=== PATIENT | female | born 1945 | race Caucasian/White ===

== ENCOUNTER 2016-05-02 06:46 | Day surgery (SDC) | payer OTHER ==
[2016-05-01 11:14] VITALS: BMI 27.1
--- NOTE | 2016-05-01 13:46 | PREOPHP ---
DATE OF ADMISSION: 05/02/2016 HISTORY OF PRESENT ILLNESS: This 70-year-old patient is admitted for elective cataract surgery of t he left eye. The patient has had decreased vision in both eyes over the past few years. The patien t also has a history of advanced chronic open angle glaucoma currently being controlled with Timolol , Brimonidine, Dorzolamide and latanoprost. The patient's systemic history is positive for hyperten wiley and hypercholesterolemia. CURRENT MEDICATIONS INCLUDE: 1. Amlodipine. 2. Benazepril. 3. Simvastatin. PHYSICAL EXAMINATION: The visual acuity with best correction is 20/200 in the right eye and 20/400 in the left eye. Slit lamp examination reveals advanced nuclear sclerosis and posterior subcapsular cataract changes greater in the left eye than in the right eye. Applanation tonometry is 15 mmHg i n both eyes. Examination of the retina reveals advanced optic disk changes secondary to the glaucom a. DIAGNOSIS: Cataract, left eye. PLAN: Cataract extraction with lens implant, left eye. The risks and alternatives to the surgery h ave been discussed with the patient and patient has opted to proceed with surgery, with the hope of obtaining greater visual acuity leading to a greater ability to perform activities of daily living. Dictated By: OMEGA HUNT/ALAINA Conf#: [id number] DID#: [id number]
[~2016-05-02] VITALS: Ht 154.9 cm; Wt 65.5 kg
[2016-05-02] VITALS (10 sets, daily range): BP systolic 121–172; BP diastolic 58–74; PULSE 80–90; RESP 15–31; Ht 154.9 cm; Wt 65.5 kg
[~2016-05-02 06:46] MED LIST: BENA40TA41 PO; FLUT16SP17 NASAL; POTA10TA18 PO; SIMV5TAB50 PO
[2016-05-02] MEDS ORDERED: CIPROFLOXACIN 0.3% 2.5 ML OPH OPER SCH (07:00)
[2016-05-02] MEDS ORDERED: DICLOFENAC 0.1% 2.5 ML OPH OPER SCH (07:00)
[2016-05-02] MEDS ORDERED: TROPICAMIDE 1% 2 ML OPH OPER SCH (07:00)
[2016-05-02] MEDS ORDERED: CYCLOPENTOLATE/PHENYLEPH 2 ML OPH OPER SCH (07:00)
[2016-05-02] MEDS ORDERED: AMLO-147 PO (07:38)
[2016-05-02] MEDS ORDERED: BECAQ NASAL (07:39)
[2016-05-02] MEDS ORDERED: ASPI-664 PO (07:39)
[2016-05-02] MEDS ORDERED: LATA2.5D2 BOTH EYES (07:40)
[2016-05-02] MEDS ORDERED: DORZ1DRO6 BOTH EYES (07:40)
[2016-05-02] MEDS ORDERED: COMBIG5 BOTH EYES (07:41)
[2016-05-02] MEDS ORDERED: PROPOFOL 20 ML ONE (09:09)
[2016-05-02] MEDS ORDERED: LIDOCAINE 100 MG SYRINGE ONE (09:09)
[2016-05-02] MEDS ORDERED: LIDOCAINE 4% (MPF) 5 ML INJ ONE (09:23)
[2016-05-02] MEDS ORDERED: DEXAMETHASONE 4 MG/ML 1 ML INJ ONE (09:24)
[2016-05-02] MEDS ORDERED: CARBACHOL 0.01% 1.5 ML OPH INJ ONE (09:24)
[2016-05-02] MEDS ORDERED: CEFAZOLIN 1 GM INJ ONE (09:24)
[2016-05-02] MEDS ORDERED: EPINEPHrine 1 MG INJ ONE (09:24)
[2016-05-02] MEDS ORDERED: GENTAMICIN 80 MG INJ ONE (09:24)
[2016-05-02] MEDS ORDERED: HYALURONATE/CHONDROITIN 1ML OPH INJ ONE (09:24)
[2016-05-02] MEDS ORDERED: hydrALAzine 20 MG INJ IV PRN (09:30)
[2016-05-02] MEDS ORDERED: ATROPINE 1 MG/10 ML SYRINGE IV PRN (09:30)
[2016-05-02] MEDS ORDERED: MIDAZOLAM 1 MG/ML 2 ML INJ IV PRN (09:30)
[2016-05-02] MEDS ORDERED: HYDROmorphONE (0.2 MG/ML) 10ML SYG IV PRN ×3 (09:30)
[2016-05-02] MEDS ORDERED: EPHEDrine SULFATE 50 MG/5 ML SYG IV PRN (09:30)
[2016-05-02] MEDS ORDERED: ONDANSETRON 4 MG INJ IV PRN (09:30)
[2016-05-02] MEDS ORDERED: LABETALOL HCL 20MG INJ IV PRN (09:30)
[2016-05-02] MEDS ORDERED: morphine (1 MG/ML) 10ML SYRINGE IV PRN ×3 (09:30)
[2016-05-02] MEDS ORDERED: DIPHENHYDRAMINE 50 MG INJ IV PRN (09:30)
[2016-05-02] MEDS ORDERED: MEPERIDINE 25 MG INJ IV PRN (09:30)
[2016-05-02] MEDS ORDERED: FENTAnyl 50 MCG/ML VIAL IV PRN ×2 (09:30)
[2016-05-02] MEDS ORDERED: OXYCODONE/ACETAMINOPHEN (5/325) TAB PO PRN ×2 (09:30)
[2016-05-02] MEDS ORDERED: CARBACHOL 0.01% 1.5 ML OPH INJ IO ONE (09:32)
[2016-05-02] MEDS ORDERED: HYALURONATE/CHONDROITIN 1ML OPH INJ IO ONE (09:32)
[2016-05-02] MEDS ORDERED: DEXAMETHASONE 4 MG/ML 1 ML INJ INJ ONE (09:32)
[2016-05-02] MEDS ORDERED: CEFAZOLIN 1 GM INJ INJ ONE (09:32)
--- NOTE | 2016-05-02 11:18 | OPR ---
DATE OF OPERATION: 05/02/2016 PREOPERATIVE DIAGNOSIS: Cataract, left eye. POSTOPERATIVE DIAGNOSIS: Cataract, left eye. SURGEON: Omega Oakes MD ANESTHESIA: Local standby. ANESTHESIOLOGIST: Dr. Kinsey OPERATION: Phacoemulsification with posterior chamber intraocular lens implant, left eye. PROCEDURE: The patient was brought to the operating room and placed on the table with an IV in plac e and the patient attached to an strategic advisor. Oxygen was given via face mask. After some intravenous sedation was administered, local anesthesia was given using Xylocaine 2% with epinephrine, mixed with Marcaine 0.5%. This was given in a lid block and retrobulbar injection. The patient was then prepped and draped in the usual sterile manner. A wire lid speculum was inserted between the lids of the left eye. A Superblade was used to enter th e anterior chamber at the corneoscleral limbus at the 10:30 o'clock position. A separate incision wa s made using a 3.0-mm keratome which entered the corneoscleral junction at the 12 o'clock position. Through this 3-mm opening, an irrigating cystitome was introduced into the anterior chamber. The liliane mber was filled with Viscoat and an anterior capsulotomy was performed. Balanced salt solution was t hen used for hydrodissection of the lens. A phacoemulsification handpiece was then brought into the field and introduced into the anterior chamber. The lens nucleus was emulsified using a deep groove and cracking the nucleus into quadrants. Following this, each quadrant was aspirated and emulsified at the pupillary margin. After this was completed, the irrigation/aspiration handpiece was brought to the field, introduced i nto the posterior chamber, and the lens cortical material was removed. When this was completed, miguel tional Viscoat was injected into the anterior and posterior chambers. The 3-mm opening had its internal lips enlarged, and then the posterior chamber intraocular lens jame suring 18.0 diopters ([employer] Model LI61AO)was then injected into the posterior chamber using the lens injector system. After the leading haptic was introduced into the capsular ba g and the lens optic was present in the center of the eye, the injector was removed and the trailing haptic was grasped with non-toothed forceps and introduced into the capsular fold superiorly. A Sin skey hook was then used to rotate the intraocular lens so that the lips were oriented in the horizon juana meridian. One 10-0 nylon suture was placed across the wound. Prior to tying, the irrigation/aspiration handpiece was reintroduced into the anterior chamber to re move the Viscoat. Miochol was instilled to constrict the pupil, and then the 10-0 nylon suture was t ied. The ends were cut short and then the knot was buried. Then, 0.5 mL of dexamethasone and 0.5 mL of Ancef were injected into the sub-Tenon space in the infe rior fornix. Ciloxan drops were then placed on the surface of the eye. The speculum was removed and a patch was applied. The patient then left the operating room in satisfactory condition. Dictated By: OMEGA HUNT/ALAINA Conf#: [id number] DID#: [id number]
== END 2016-05-02 11:35 | disposition home or self-care (01) ==
LOC: SDS 06:46
PROVIDERS: ATTEND Ophthalmology
DX: H25.12 Age-related nuclear cataract, left eye (principal); E78.5 Hyperlipidemia, unspecified; I10 Essential (primary) hypertension
CPT/HCPCS: 66984; J0171; J0690; J1100; J1580; J2001; V2632; Z7512; Z7610

== ENCOUNTER 2016-07-04 05:20 | Day surgery (SDC) | payer OTHER ==
[2016-07-03 10:26] VITALS: Ht 154.9 cm; Wt 66.9 kg
--- NOTE | 2016-07-03 13:19 | PREOPHP ---
DATE OF ADMISSION: 07/04/2016 HISTORY OF PRESENT ILLNESS: This 70-year-old patient is admitted for elective cataract surgery of t he right eye. The patient has had progressive deterioration of vision in both eyes over the past fe w years and 2 months ago underwent cataract surgery in the left eye with good visual result. The rosaura morales also has a history of chronic open angle glaucoma, being controlled with Timolol, brimonidine, and dorzolamide, and latanoprost. The patient's systemic history is positive for hypertension and hypercholesterolemia. CURRENT MEDICATIONS: Include: 1. Amlodipine. 2. Benazepril. 3. Simvastatin. ALLERGIES: THERE ARE NO KNOWN ALLERGIES. PHYSICAL EXAMINATION: The visual acuity with best correction is 20/200 in the right eye and 20/50 i n the left eye. Slit lamp examination reveals nuclear sclerotic and posterior subcapsular cataract in the right eye and posterior chamber intraocular lens in the left eye. Applanation tonometry is 1 5 mmHg. Examination of the retina reveals optic disk changes secondary to the chronic glaucoma. DIAGNOSIS: Cataract, right eye. PLAN: Cataract extraction with lens implant, right eye. The risks and alternatives to the surgery have been discussed with the patient, and the patient desires to proceed with surgery in hopes of ob taining improved visual acuity leading to a greater ability to perform activities of daily living. Dictated By: OMEGA HUNT/ALAINA Conf#: [id number] DID#: [id number]
[2016-07-04] VITALS (13 sets, daily range): BP systolic 83–169; BP diastolic 40–76; PULSE 54–76; RESP 14–20
[~2016-07-04] VITALS: Ht 154.9 cm; Wt 66.9 kg
[~2016-07-04 05:20] MED LIST changes: +AMLO-147 PO; +ASPI-664 PO; +BECAQ NASAL; +COMBIG5 BOTH EYES; +DORZ1DRO6 BOTH EYES; -FLUT16SP17 NASAL; +LATA2.5D2 BOTH EYES
[2016-07-04] MEDS ORDERED: TROPICAMIDE 1% 2 ML OPH OPER SCH (07:00)
[2016-07-04] MEDS ORDERED: CIPROFLOXACIN 0.3% 2.5 ML OPH OPER SCH (07:00)
[2016-07-04] MEDS ORDERED: DICLOFENAC 0.1% 2.5 ML OPH OPER SCH (07:00)
[2016-07-04] MEDS ORDERED: CYCLOPENTOLATE/PHENYLEPH 2 ML OPH OPER SCH (07:00)
[2016-07-04] MEDS ORDERED: CEFAZOLIN 1 GM INJ ONE (08:03)
[2016-07-04] MEDS ORDERED: LIDOCAINE 4% (MPF) 5 ML INJ ONE (08:03)
[2016-07-04] MEDS ORDERED: DEXAMETHASONE 4 MG/ML 1 ML INJ ONE (08:04)
[2016-07-04] MEDS ORDERED: EPINEPHrine 1 MG INJ ONE (08:04)
[2016-07-04] MEDS ORDERED: GENTAMICIN 80 MG INJ ONE (08:04)
[2016-07-04] MEDS ORDERED: CARBACHOL 0.01% 1.5 ML OPH INJ ONE (08:04)
[2016-07-04] MEDS ORDERED: HYALURONATE/CHONDROITIN 1ML OPH INJ ONE (08:04)
[2016-07-04] MEDS ORDERED: CEFAZOLIN 1 GM INJ INJ ONE (08:12)
[2016-07-04] MEDS ORDERED: CARBACHOL 0.01% 1.5 ML OPH INJ IO ONE (08:12)
[2016-07-04] MEDS ORDERED: DEXAMETHASONE 4 MG/ML 1 ML INJ INJ ONE (08:12)
[2016-07-04] MEDS ORDERED: HYALURONATE/CHONDROITIN 1ML OPH INJ IO ONE (08:12)
[2016-07-04] MEDS ORDERED: PROPOFOL 20 ML ONE (08:15)
[2016-07-04] MEDS ORDERED: hydrALAzine 20 MG INJ IV PRN (08:30)
[2016-07-04] MEDS ORDERED: MEPERIDINE 25 MG INJ IV PRN (08:30)
[2016-07-04] MEDS ORDERED: HYDROmorphONE (0.2 MG/ML) 10ML SYG IV PRN ×3 (08:30)
[2016-07-04] MEDS ORDERED: FENTAnyl 50 MCG/ML VIAL IV PRN ×2 (08:30)
[2016-07-04] MEDS ORDERED: LABETALOL HCL 20MG INJ IV PRN (08:30)
[2016-07-04] MEDS ORDERED: ONDANSETRON 4 MG INJ IV PRN (08:30)
--- NOTE | 2016-07-04 09:58 | OPR ---
DATE OF OPERATION: 07/04/2016 PREOPERATIVE DIAGNOSIS: Cataract, right eye. POSTOPERATIVE DIAGNOSIS: Cataract, right eye. OPERATION PERFORMED: Cataract extraction with lens implant, right eye. SURGEON: Omega Oakes MD ANESTHESIOLOGIST: Ronnie Walker MD ANESTHESIA: Local standby. PROCEDURE: The patient was brought to the operating room and placed on the table with an IV in plac e and the patient attached to an gambling monitor. Oxygen was given via face mask. After some intravenous sedation was administered, local anesthesia was given using Xylocaine 2% with epinephrine, mixed with Marcaine 0.5%. This was given in a lid block and retrobulbar injection. The patient was then prepped and draped in the usual sterile manner. A wire lid speculum was inserted between the lids of the right eye. A Superblade was used to enter t he anterior chamber at the corneoscleral limbus at the 10:30 o'clock position. A separate incision w as made using a 3.0-mm keratome which entered the corneoscleral junction at the 12 o'clock position. Through this 3-mm opening, an irrigating cystitome was introduced into the anterior chamber. The ch jhon was filled with Viscoat and an anterior capsulotomy was performed. Balanced salt solution was then used for hydrodissection of the lens. A phacoemulsification handpiece was then brought into th e field and introduced into the anterior chamber. The lens nucleus was emulsified using a deep groov e and cracking the nucleus into quadrants. Following this, each quadrant was aspirated and emulsifie d at the pupillary margin. After this was completed, the irrigation/aspiration handpiece was brought to the field, introduced i nto the posterior chamber, and the lens cortical material was removed. When this was completed, miguel tional Viscoat was injected into the anterior and posterior chambers. The 3-mm opening had its internal lips enlarged, and then the posterior chamber intraocular lens jame suring 18.5 diopters ([employer] model LI61AO) was then injected into the posterior chamber using the lens injector system. After the leading haptic was introduced into the capsular b ag and the lens optic was present in the center of the eye, the injector was removed and the trailin g haptic was grasped with non-toothed forceps and introduced into the capsular fold superiorly. A Si nskey hook was then used to rotate the intraocular lens so that the lips were oriented in the horizo ntal meridian. One 10-0 nylon suture was placed across the wound. Prior to tying, the irrigation/aspiration handpiece was reintroduced into the anterior chamber to re move the Viscoat. Miochol was instilled to constrict the pupil, and then the 10-0 nylon suture was t ied. The ends were cut short and then the knot was buried. Then, 0.5 mL of dexamethasone and 0.5 mL of Ancef were injected into the sub-Tenon space in the infe rior fornix. Ciloxan drops were then placed on the surface of the eye. The speculum was removed and a patch was applied. The patient then left the operating room in satisfactory condition. Dictated By: OMEGA HUNT/ALAINA Conf#: [id number] DID#: [id number]
== END 2016-07-04 10:32 | disposition home or self-care (01) ==
LOC: SDS 05:20
PROVIDERS: ATTEND Ophthalmology
DX: H25.11 Age-related nuclear cataract, right eye (principal); I10 Essential (primary) hypertension
CPT/HCPCS: 66984; J0171; J0690; J1100; J1580; J2405; J3010; V2632; Z7512; Z7610

== ENCOUNTER → 2017-09-06 | Emergency (ER) | END | disposition home or self-care (01) ==

== ENCOUNTER 2017-12-18 14:55 | Emergency (ER) | END 2017-12-18 18:53 | disposition home or self-care (01) ==

== ENCOUNTER 2018-09-12 20:06 | Emergency (ER) | payer OTHER ==
[~2018-09-12] VITALS: Ht 152.4 cm; Wt 69.0 kg
[~2018-09-12 20:06] MED LIST changes: -ASPI-664 PO; +ASPI81TA52 PO; -BENA40TA41 PO; +BENA40TA56 PO; -DORZ1DRO6 BOTH EYES; +DORZ1DRO7 BOTH EYES; +SIMV5TAB14 PO; -SIMV5TAB50 PO
[2018-09-12 20:09] VITALS: Ht 152.4 cm; Wt 69.0 kg
[2018-09-12] MEDS ORDERED: ONDANSETRON 4 MG INJ IV STA (21:34)
[2018-09-12] MEDS ORDERED: morphine 4 MG/ML VIAL IV STA (21:34)
[2018-09-12] MEDS ORDERED: POTASSIUM CHLORIDE (SR) 20 MEQ TAB PO STA (22:00)
[2018-09-12] MEDS ORDERED: ACET325T33 PO (22:45)
[2018-09-12] MEDS ORDERED: ONDA4TAB14 PO (22:45)
--- NOTE | 2018-09-12 22:48 | ERD ---
ER Documentation Chief Complaint Chief Complaint Dizziness and nausea since last night worse when looking down HPI Patient is a 73-year-old female with glaucoma, hypertension, and previous hysterectomy who presents with abdominal pain. The patient had nausea and dizziness as well as abdominal pain. It started last night. She had blurred vision and had a headache as well. She tried Pepto-Bismol. The symptoms come and go. ROS All systems reviewed and are negative except as per history of present illness. Medications Home Meds Active Scripts Ondansetron (Ondansetron Odt) 4 Mg Tab.rapdis, 4 MG PO Q6H PRN for NAUSEA AND/OR VOMITING, #10 TAB Prov:LEE MORTENSEN MD 09/12/18 Acetaminophen* (Tylenol*) 325 Mg Tablet, 2 TAB PO Q6 PRN for PAIN AND OR FRANKIE VATED TEMP, #20 TAB Prov:LEE MORTENSEN MD 09/12/18 Reported Medications Brimonidine/Timolol* (Combigan*) 5 Ml Drops, 1 DROP BOTH EYES BID, BOTTLE 05/02/16 Latanoprost (Latanoprost) 2.5 Ml Drops, 1 DROP BOTH EYES QHS, #1 BOTTLE 05/02/16 Dorzolamide-Timolol* (Cosopt*) 2%-0.5% Pres Free Droperette, 1 DROP BOTH EYES BID, DROP 05/02/16 Beclomethasone Dip* (Beconase AQ*) 25 Gm [place], 1 SPRAY NASAL BID, SPRAY TO EACH NOSTRIL 05/02/16 Aspirin (Low Dose Aspirin) 81 Mg Tablet.dr, 81 MG PO DAILY, #30 TAB 05/02/16 Amlodipine Besylate* (Amlodipine Besylate*) 10 Mg Tablet, 10 MG PO DAILY, #30 TAB 05/02/16 Simvastatin* (Simvastatin*) 5 Mg Tablet, 5 MG PO QHS, #30 TAB 02/12/16 Benazepril Hcl* (Benazepril Hcl*) 40 Mg Tablet, 40 MG PO DAILY, #30 TAB 02/12/16 Potassium Citrate* (Potassium Citrate* ER) 10 Meq Tablet.sa, 10 MEQ PO DAILY, TAB.SA 02/12/16 Allergies Allergies: Coded Allergies: No Known Allergy (Unverified , 07/04/16) PMhx/Soc History of Surgery: Yes (NOSE SURGERY,HYSTERECTOMY) Anesthesia Reaction: No Hx Neurological Disorder: No Hx Respiratory Disorders: No Hx Cardiac Disorders: Yes (HTN ,HLD) Hx Psychiatric Problems: No Hx Miscellaneous Medical Probl: No Hx Alcohol Use: No Hx Substance Use: No Hx Tobacco Use: No Smoking Status: Never smoker FmHx Family History: No diabetes Physical Exam Vitals Vital Signs Date Temp Pulse Resp B/P (MAP) Pulse Ox O2 O2 Flow FiO2 Time Delivery Rate 09/12/18 98.2 57 18 163/61 97 Room Air 23:10 (95) 09/12/18 98.2 74 17 178/64 97 Room Air 22:12 (102) 09/12/18 98.2 67 17 182/82 97 Room Air 21:27 (115) 09/12/18 98.2 69 20 178/80 97 20:09 (112) Physical Exam Const: No acute distress Head: Atraumatic Eyes: Normal Conjunctiva ENT: Normal External Ears, Nose and Mouth. Neck: Full range of motion. No meningismus. Resp: Clear to auscultation bilaterally Cardio: Regular rate and rhythm, no murmurs Abd: Soft, left lower quadrant tenderness to palpation without rebound or guarding Skin: No petechiae or rashes Back: No midline or flank tenderness Ext: No cyanosis, or edema Neur: Awake and alert Psych: Normal Mood and Affect Result Diagram: 09/12/18211909/12/182119 Results 24 hrs Laboratory Tests Test 09/12/18 21:20 09/12/18 21:48 White Blood Count 6.3 10^3/ul Red Blood Count 4.85 10^6/ul Hemoglobin 14.4 g/dl Hematocrit 41.3 % Mean Corpuscular Volume 85.2 fl Mean Corpuscular Hemoglobin 29.7 pg Mean Corpuscular Hemoglobin Concent 34.9 g/dl Red Cell Distribution Width 12.0 % Platelet Count 245 10^3/UL Mean Platelet Volume 10.9 fl Immature Granulocytes % 0.200 % Neutrophils % 56.5 % Lymphocytes % 32.7 % Monocytes % 9.0 % Eosinophils % 1.3 % Basophils % 0.3 % Nucleated Red Blood Cells % 0.0 /100WBC Immature Granulocytes # 0.010 10^3/ul Neutrophils # 3.6 10^3/ul Lymphocytes # 2.1 10^3/ul Monocytes # 0.6 10^3/ul Eosinophils # 0.1 10^3/ul Basophils # 0.0 10^3/ul Nucleated Red Blood Cells # 0.0 10^3/ul Sodium Level 131 mmol/L Potassium Level 2.5 mmol/L Chloride Level 88 mmol/L Carbon Dioxide Level 30 mmol/L Anion Gap 13 Blood Urea Nitrogen 18 mg/dl Creatinine 0.96 mg/dl Est Glomerular Filtrat Rate mL/min mL/min Glucose Level 116 mg/dl Calcium Level 9.8 mg/dl Total Bilirubin 1.4 mg/dl Direct Bilirubin 0.00 mg/dl Indirect Bilirubin 1.4 mg/dl Aspartate Amino Transf (AST/SGOT) 37 IU/L Alanine Aminotransferase (ALT/SGPT) 21 IU/L Alkaline Phosphatase 76 IU/L Troponin I < 0.012 ng/ml Total Protein 9.2 g/dl Albumin 4.9 g/dl Globulin 4.30 g/dl Albumin/Globulin Ratio 1.13 Lipase 114 U/L Urine Color COLORLESS Urine Clarity CLEAR Urine pH 7.0 Urine Specific Lyles 1.002 Urine Ketones NEGATIVE mg/dL Urine Nitrite NEGATIVE mg/dL Urine Bilirubin NEGATIVE mg/dL Urine Urobilinogen NEGATIVE mg/dL Urine Leukocyte Esterase NEGATIVE Lissett/ul Urine Microscopic RBC 1 /HPF Urine Microscopic WBC 1 /HPF Urine Hemoglobin 1+ mg/dL Urine Glucose NEGATIVE mg/dL Urine Total Protein NEGATIVE mg/dl Current Medications Medications Dose Sig/Saravanan Start Time Status Last (Trade) Ordered Route PRN Stop Time Admin Dose Reason Admin Morphine 4 mg ONCE STAT 09/12/18 DC 09/12/18 Sulfate IV 21:34 21:47 (morphine) 09/12/18 21:35 Ondansetron 4 mg ONCE STAT 09/12/18 DC 09/12/18 HCl (Zofran IV 21:34 21:47 Inj) 09/12/18 21:35 Potassium 40 meq ONCE STAT 09/12/18 DC 09/12/18 Chloride PO 22:00 22:03 (Klor-Con 20) 09/12/18 22:01 Procedures/MDM EKG read by me: Rate/Rhythm: Regular rate and rhythm at a rate of 63 Intervals: Normal Impression: No evidence of ischemia or arrhythmia CT scan read by radiology negative for surgical process. Patient is a 73-year-old female who presents with abdominal pain and dizziness. Patient was found to have mildly low sodium and potassium. The patient was given potassium replacement by mouth. The patient was given Zofran and morphine for symptom medic relief. CT scan shows no sign of surgical process. I do not see any indication for admission at this time. I doubt appendicitis, cholecystitis, pancreatitis, or bowel obstruction. I doubt acute coronary syndrome or arrhythmia. However the patient will need close follow-up with the primary doctor within 24 hours for reevaluation. The patient will be given a prescription for Tylenol and Zofran for symptomatic relief. Departure Diagnosis: Primary Impression: Hypokalemia Additional Impressions: Dizziness Abdominal pain Abdominal location: left lower quadrant Qualified Codes: R10.32 - Left lower quadrant pain Condition: Fair Patient Instructions: Abdominal Pain, Dizziness, Unk Cause Additional Instructions: Llame al doctor MAANA y erma ry KEYUR PARA DENTRO DE 1-2 MORRIS.Dgale a la secretaria que nosotros le instruimos hacer esta keyur.Avise o llame si navas condicin se empeora antes de la keyur. Regresa aqui si peor o no mejor. LEE MORTENSEN MD Sep 12, 2018 22:48
[2018-09-12 23:10] VITALS: BP 163/61; PULSE 57; RESP 18
[2018-09-12] MEDS ORDERED: METO-335 PO (23:46)
[2018-09-12] MEDS ORDERED: LOSA100T15 PO (23:46)
[2018-09-12] MEDS ORDERED: HYDR12.58 PO (23:46)
[2018-09-12] MEDS ORDERED: NIFE30TA23 PO (23:46)
== END 2018-09-12 23:13 | disposition home or self-care (01) ==
LOC: E/R 20:06
DX: R42 Dizziness and giddiness (principal); R10.32 Left lower quadrant pain; E87.6 Hypokalemia; I10 Essential (primary) hypertension; Z79.82 Long term (current) use of aspirin
CPT/HCPCS: 36415; 74176; 80053; 81001; 83690; 84484; 85025; 96374; 96375; J2270; J2405; Z7502; Z7610